=== PATIENT | female | born 1950 | race African-American/Black ===

== ENCOUNTER 2025-01-15 21:31 | Emergency (ER) | payer BC ==
[~2025-01-15] VITALS: Ht 162.6 cm; Wt 59.0 kg
[2025-01-15 21:35] VITALS: TEMP 36.9; O2SAT 100
[2025-01-16 00:38] LABS: BASOPHILS % 0.9 % (0.0-2.0); EOSINOPHILS % 0.0 % (0.0-5.0); HEMATOCRIT. 37.8 % (36.0-48.0); HEMOGLOBIN. 13.1 g/dL (12.0-16.0); LYMPHOCYTES % 16.7 % (20.0-50.0); MEAN PLATELET VOLUME 9.7 fl (7.4-10.4); MONOCYTES % 7.2 % (2.0-8.0); NEUTROPHILS % 75.2 % (40.0-76.0); PLATELET 170 x1000/uL (130-400); RED BLOOD CELL COUNT 4.09 mill/uL (4.2-5.4); RED CELL DISTRIBUTION WIDTH 14.3 % (11.6-14.6)
[2025-01-16 00:46] LABS: INR 1.0
[2025-01-16 00:48] LABS: CREATININE 0.8 mg/dL (0.6-1.0); TROPONIN I HIGH SENSITIVITY 4 ng/L (3.0-34)
[2025-01-16 00:49] LABS: ETHANOL BLOOD < 10 mg/dL (<10); UREA NITROGEN BLOOD 13 mg/dL (9-23)
[2025-01-16 00:50] LABS: ASPARTATE AMINOTRANSFERASE 22 IU/L (<34); PROTEIN TOTAL 7.0 g/dL (6.0-8.3)
[2025-01-16 00:51] LABS: BILIRUBIN DIRECT 0.2 mg/dL (<=3.0); BILIRUBIN TOTAL 0.7 mg/dL (0.1-1.0); PHOSPHORUS 2.3 mg/dL (2.5-4.9)
[2025-01-16 00:52] LABS: T4 FREE 1.38 ng/dL (0.89-1.76)
[2025-01-16] MEDS ORDERED: CALCIUM ACETATE 667MG CAPSULE PO NR (01:15)
[2025-01-16] MEDS ORDERED: CALC667T2 MT (01:36)
[2025-01-16] MEDS ORDERED: PHOS250T5 MT (01:38)
[2025-01-16] MEDS: POTASSIUM-SODIUM PHOSPHATE POWDER PACKET PO ONE (01:55)
[2025-01-16 02:00] VITALS: BP 177/75; PULSE 72; RESP 15; O2SAT 100
== END 2025-01-16 02:08 | disposition home or self-care (01) ==
LOC: ER 21:31 → CMPBEDREQ 01-16 19:23
DX: R00.2 Palpitations (principal); E83.39 Other disorders of phosphorus metabolism; E03.9 Hypothyroidism, unspecified; I10 Essential (primary) hypertension; Z94.7 Corneal transplant status; Z48.810 Encounter for surgical aftercare following surgery on the sense organs
CPT/HCPCS: 36415; 71045; 80048; 80076; 80320; 83735; 84100; 84439; 84443; 84484; 85025; 93005; 99285; G0480